=== PATIENT | male | born 2000 | race Hispanic/Latino ===

== ENCOUNTER 2018-08-14 23:21 | Emergency (ER) | payer SELFPAY ==
[~2018-08-14] VITALS: Ht 180.3 cm; Wt 68.0 kg
[~2018-08-14 23:21] MED LIST: ANTIVERT25 MG
--- NOTE | 2018-08-15 00:21 | Diagnostic Imaging Report ---
WRIST COMPLETE LEFT Comparison: None Clinical history: Fall, swelling and pain Findings: Somewhat limited by portable technique. Mild soft tissue swelling about the wrist. Linear lucency over the ventral medial distal radius seen on oblique view; this may extend intra-articularly. Impression: Likely nondisplaced distal radial fracture. Correlate with site of pain and recommend follow-up nonportable views. Signed by: Dr Lisa Espinoza MD on 08/15/2018 12:18 AM
[2018-08-15] MEDS ORDERED: TRAMADOL HCL 50 MG TAB PO ONE (00:30)
[2018-08-15 00:51] VITALS: BP 129/86
== END 2018-08-15 02:37 | disposition home or self-care (01) ==
LOC: ER 23:21
DX: S52.312A Greenstick fracture of shaft of radius, left arm, initial encounter for closed fracture (principal); S80.211A Abrasion, right knee, initial encounter; W17.89XA Other fall from one level to another, initial encounter; Y93.51 Activity, roller skating (inline) and skateboarding; Y92.488 Other paved roadways as the place of occurrence of the external cause
CPT/HCPCS: 99284